=== PATIENT | female | born 1960 | race Caucasian/White ===

== ENCOUNTER 2017-07-07 10:10 | Emergency (ER) | payer OTHER ==
[2017-07-07 10:15] VITALS: BP 122/79; RESP 18; TEMP 98.2
[2017-07-07] MEDS ORDERED: PROMETHAZINE HCL 25 MG TAB PO ONE (10:30)
--- NOTE | 2017-07-07 10:30 | EDPHY ---
H & P Stated Complaint: med clear Time Seen by Provider: 07/07/17 10:16 HPI/ROS: HPI: This is a 57-year-old female who presents with Chief Complaint: Medical clearance request and alcohol detox Location: body Quality: Medical clearance and alcohol detox Duration: Today Signs and Symptoms: no fever, + nausea, no vomiting, no hematemesis, no blood in stool, no abdominal bloating, no diarrhea, no back pain, no urinary symptoms , no indigestion, no chest pain, no shortness of breath, no suicidal ideation, no homicidal ideation, no hallucinations Timing: Acute on chronic Severity: moderate Context: Patient has a history of alcohol dependence and alcohol abuse presents with request for medical clearance and alcohol detox placement. Patient is taking Vivitrol and Risperdal and the RN, Lillie Stephenson, ([phone]) at [facility] is concerned that these medications are masking her true serum alcohol level. She is requesting laboratory workup including LFTs and serum ethanol level. She tried to get [facility] this morning for alcohol detox but patient was declined as she has Medicare. Patient fifth of Vodka daily and has had 1-2 shots today around 10:30 am. Patient reports that she feels mildly nauseous but denies vomiting, diarrhea, fever, abdominal pain. She also has a history of DVT and takes Xarelto and aspirin. Patient denies lower extremity swelling/shortness of breath/chest pain. Patient reports compliance with all medications including a.m. doses today. She is due for Risperdal IM injection tomorrow and her last shot of it trial was 2016. Patient denies any suicidal ideation/homicidal ideation/hallucinations/ auditory disturbances/visual disturbances/tactile disturbances + mild bandlike headache and mild anxiety. She reports that she has been sober for "quite some time" but recently started drinking again over the holiday. Denies history of alcohol withdrawal seizures. Patient's accompanied by legal guardian. Modifying Factors: None Comment: ROS: see HPI Constitutional: No fever, no chills, no weight loss Eyes: No blurred vision Respiratory: No shortness of breath, no cough Cardiovascular: No chest pain, no palpitations Gastrointestinal: + nausea, no vomiting, no diarrhea, no hematemesis, no blood in stool Genitourinary: No dysuria, no blood in urine Extremities: No myalgias, no edema Neurologic: No weakness, no numbness Skin: No rashes, no petechiae Hematologic: No bruising, no bleeding MEDICAL/SURGICAL/SOCIAL HISTORY: Medical history: DVT, bipolar, PAD, ETOH abuse Surgical history: LEG SURG R/T DVT'S, back pain Social history: unemployed. CONSTITUTIONAL: Chronically ill-appearing white female, appears older than stated age, awake and alert, no obvious distress HEENT: Atraumatic and normocephalic, PERRL, EOMI. Tympanic membranes clear. Oropharynx clear, no exudate and moist pink mucosa. Airway patent. No lymphadenopathy. No meningismus. Cardiovascular: Normal S1/S2, mild tachycardia, regular rhythm, without murmur rub or gallop. PULMONARY/CHEST: Symmetrical and nontender. Clear to auscultation bilaterally. Good air movement. No accessory muscle usage. ABDOMEN: Soft, nondistended, nontender, no rebound, no guarding, no peritoneal signs, no masses or organomegaly. No CVAT. EXTREMITIES: 2/2 pulses, strength 5/5, no deformities, no clubbing, no cyanosis or edema. NEUROLOGICAL: Mild hand tremors. GCS 15. Alert and oriented x4. Gait is slow and purposeful. SKIN: Warm and dry, no erythema. no rash. Good capillary refill. PSYCH: Calm and cooperative, conversant, good eye contact, no flight of ideas, organized thought process, relatively good insight and judgment, no auditory and visual command hallucinations, no suicidal ideation with a plan, no homicidal ideation, no paranoia Source: Patient, RN/MD Exam Limitations: No limitations - Personal History Current Tetanus/Diphtheria Vaccine: Unsure Current Tetanus Diphtheria and Acellular Pertussis (TDAP): Unsure Tetanus Vaccine Date: unsure - Medical/Surgical History Hx Asthma: No Hx Chronic Respiratory Disease: No Hx Diabetes: No Hx Cardiac Disease: No Hx Renal Disease: No Hx Cirrhosis: No Hx Alcoholism: Yes Hx HIV/AIDS: No Hx Splenectomy or Spleen Trauma: No Other PMH: medical- DVT, bipolar, PAD, ETOH abuse. surgical- LEG SURG R/T DVT'S , back pain - Social History Smoking Status: Former smoker Constitutional: Initial Vital Signs Temperature (C) 36.8 C 07/07/17 10:13 Heart Rate 102 H 07/07/17 10:13 Respiratory Rate 18 07/07/17 10:13 Blood Pressure 122/79 H 07/07/17 10:13 O2 Sat (%) 94 07/07/17 10:13 O2 Delivery Mode Room Air Allergies/Adverse Reactions: codeine [Codeine] Allergy (Mild, Verified 07/07/17 10:13) NAUSEA oxycodone HCl [From Percocet] Allergy (Mild, Verified 07/07/17 10:13) NAUSEA penicillin V [Penicillin V] Allergy (Mild, Verified 07/07/17 10:13) Unknown Home Medications: Medication Instructions Recorded ASPIRIN 05/18/16 Cilostazol 05/18/16 LEVOTHYROXINE SODIUM 05/18/16 Prozac 40 mg 05/18/16 Xarelto 05/18/16 Zyprexa 05/18/16 carBAMazepine 05/18/16 Medical Decision Making ED Course/Re-evaluation: Labs and UDS ordered. Given p.o. promethazine for nausea. Patient does not meet M1 criteria. Case management consult for alcohol detox options. CIWA score upon arrival: 8 points Comanagement called the [facility] who advised that there is bed availability and patient is eligible to be discharged to their facility. Patient then advised Case management that she did not want to go to the [facility]. Patient given numbers to call [facility] and [facility] for evaluation/admission. 1055: Labs reviewed- serum ETOH 281. AST 52. Mild leukocytosis without left shift; afebrile. Still waiting on urine sample from patient her [facility] RN request. Reassessed patient who is calm and cooperative; patient has an appointment at [facility] at 3:30 p.m. UDS negative. [facility] does not require prepack of Librium. No signs of delirium/psychosis/alcohol withdrawal/seizure/HI/SI. No ataxia noted at discharge. This patient was seen under the supervision of my secondary supervising physician. I evaluated care for this patient independently. Discussed this patient with Dr. Steve who did not see the patient. Patient's presentation, labs /imaging, treatment and plan of care were discussed with secondary supervising physician. Differential Diagnosis: Differential diagnosis includes but is not limited to transaminitis, medication side effect, alcohol intoxication, electrolyte imbalance. - Data Points Laboratory Results: Laboratory Results 07/07/17 10:30 07/07/17 10:30 07/07/1718 07/07/17 13:45 10:30 10:30 WBC 10.87 10^3/uL H 10^3/uL (3.80-9.50) RBC 5.00 10^6/uL 10^6/uL (4.18-5.33) Hgb 15.9 g/dL g/dL (12.6-16.3) Hct 45.6 % % (38.0-47.0) MCV 91.2 fL fL (81.5-99.8) MCH 31.8 pg pg (27.9-34.1) MCHC 34.9 g/dL g/dL (32.4-36.7) RDW 13.3 % % (11.5-15.2) Plt Count 232 10^3/uL 10^3/uL (150-400) MPV 9.2 fL fL (8.7-11.7) Neut % (Auto) 69.8 % % (39.3-74.2) Lymph % (Auto) 25.0 % % (15.0-45.0) [place] % (Auto) 3.9 % L % (4.5-13.0) Eos % (Auto) 0.5 % L % (0.6-7.6) Baso % (Auto) 0.5 % % (0.3-1.7) Nucleat RBC Rel Count 0.0 % % (0.0-0.2) Absolute Neuts (auto) 7.60 10^3/uL H 10^3/uL (1.70-6.50) Absolute Lymphs (auto) 2.72 10^3/uL 10^3/uL (1.00-3.00) Absolute Monos (auto) 0.42 10^3/uL 10^3/uL (0.30-0.80) Absolute Eos (auto) 0.05 10^3/uL 10^3/uL (0.03-0.40) Absolute Basos (auto) 0.05 10^3/uL 10^3/uL (0.02-0.10) Absolute Nucleated RBC 0.00 10^3/uL 10^3/uL (0-0.01) Immature Gran % 0.3 % % (0.0-1.1) Immature Gran # 0.03 10^3/uL 10^3/uL (0.00-0.10) Sodium 141 mEq/L mEq/L (134-144) Potassium 4.1 mEq/L mEq/L (3.5-5.2) Chloride 100 mEq/L mEq/L (97-110) Carbon Dioxide 15 mEq/l L mEq/l (22-31) Anion Gap 26 mEq/L H mEq/L (8-16) BUN 13 mg/dL mg/dL (7-23) Creatinine 0.9 mg/dL mg/dL (0.6-1.0) Estimated GFR > 60 Glucose 54 mg/dL L mg/dL (70-100) Calcium 9.4 mg/dL mg/dL (8.5-10.4) Total Bilirubin 0.9 mg/dL mg/dL (0.1-1.4) Conjugated Bilirubin 0.4 mg/dL mg/dL (0.0-0.5) Unconjugated Bilirubin 0.5 mg/dL mg/dL (0.0-1.1) AST 52 IU/L H IU/L (14-46) ALT 49 IU/L IU/L (9-52) Alkaline Phosphatase 80 IU/L IU/L (38-126) Total Protein 7.5 g/dL g/dL (6.3-8.2) Albumin 5.0 g/dL g/dL (3.5-5.0) Urine Opiates Screen NEGATIVE (NEGATIVE) Urine Barbiturates NEGATIVE (NEGATIVE) Ur Phencyclidine Scrn NEGATIVE (NEGATIVE) Ur Amphetamine Screen NEGATIVE (NEGATIVE) U Benzodiazepines Scrn NEGATIVE (NEGATIVE) Urine Cocaine Screen NEGATIVE (NEGATIVE) U Marijuana (THC) Screen NEGATIVE (NEGATIVE) Ethyl Alcohol 281 mg/dL H mg/dL (0-10) Medications Given: Discontinued Medications Promethazine HCl (Phenergan) 25 mg PO EDNOW ONE Stop: 07/07/17 10:31 Last Admin: 07/07/17 10:36 Dose: 25 mg Departure - Departure Disposition: Other Psych, Not [place] Clinical Impression: Alcohol abuse Alcohol dependence Qualifiers: Substance use status: with intoxication Complication of substance-induced condition: uncomplicated Qualified Code(s): F10.220 - Alcohol dependence with intoxication, uncomplicated Condition: Fair Instructions: Alcohol Use Disorder (ED) Additional Instructions: Patient is medically clear to be admitted to alcohol detox program. Referrals: Maki Jerez MD [Primary Care Provider] - As per Instructions
[2017-07-07 10:41] LABS: PLATELET COUNT 232 10^3/uL (150-400)
--- NOTE | 2017-07-07 11:23 | ASMTCMCOM ---
CM Note CM Note Notes: Met with patient to discuss resources and plans for alcohol detox and treatment. Patient is alert, oriented to self and situation. She is accompanied by a "child care worker/friend" to whom I am not introduced. Patient consults with her as she confirms her options. I was able to clarify with patient that she did present to [facility] prior to arriving to the ER. She admits that she does not want to go to the [facility]. Patient tells me that she has been to IP treatment in the past for her alcoholism. We talked about different options available for detox and she states that she would like to follow through with IP treatment as well. I explained the process of reaching out to detox facilities that she is interested in so she can arrange an assessment for admission. I have also explained that she may or may be able to get in for an assessment today, and that she may need to schedule an intake for a later date. She has a list of potential options such as [facility], [place], and others I have encouraged her to contact potential options while she is here and she acknowledges that she has support and transportation to get her to a chosen location. Date Signed: 07/07/2017 11:22 AM Electronically Signed By:Rola Moon RN
[2017-07-07 14:59] VITALS: PULSE 120; O2SAT 95
== END 2017-07-07 14:58 ==
DX: F10.220 Alcohol dependence with intoxication, uncomplicated (principal); Z79.01 Long term (current) use of anticoagulants; Z79.82 Long term (current) use of aspirin; Z87.891 Personal history of nicotine dependence
CPT/HCPCS: 80305; G0480

== ENCOUNTER 2017-08-22 16:03 | Emergency (ER) | payer OTHER ==
[2017-08-22 16:19] VITALS: BP 105/79; PULSE 87; RESP 17; TEMP 98.1; O2SAT 93
--- NOTE | 2017-08-22 16:50 | EDPHY ---
H & P Stated Complaint: etoh/drinks every day and wants to quit on multiple meds Time Seen by Provider: 08/22/17 16:28 - Personal History Current Tetanus/Diphtheria Vaccine: Unsure Tetanus Vaccine Date: unsure - Medical/Surgical History Hx Asthma: No Hx Chronic Respiratory Disease: No Hx Diabetes: No Hx Cardiac Disease: No Hx Renal Disease: No Hx Cirrhosis: No Hx Alcoholism: Yes Hx HIV/AIDS: No Hx Splenectomy or Spleen Trauma: No Other PMH: medical- DVT, bipolar, PAD, ETOH abuse. surgical- LEG SURG R/T DVT'S , back pain - Social History Smoking Status: Former smoker Constitutional: Initial Vital Signs Temperature (C) 36.7 C 08/22/17 16:16 Heart Rate 87 08/22/17 16:16 Respiratory Rate 17 08/22/17 16:16 Blood Pressure 105/79 08/22/17 16:16 O2 Sat (%) 93 08/22/17 16:16 O2 Delivery Mode Room Air Allergies/Adverse Reactions: codeine [Codeine] Allergy (Mild, Verified 08/22/17 16:15) NAUSEA oxycodone HCl [From Percocet] Allergy (Mild, Verified 08/22/17 16:15) NAUSEA penicillin V [Penicillin V] Allergy (Mild, Verified 08/22/17 16:15) Unknown Home Medications: Medication Instructions Recorded ASPIRIN 05/18/16 Cilostazol 05/18/16 LEVOTHYROXINE SODIUM 05/18/16 Prozac 40 mg 05/18/16 Xarelto 05/18/16 Zyprexa 05/18/16 carBAMazepine 05/18/16 Risperdal 08/22/17 Vivitrol 08/22/17 Medical Decision Making ED Course/Re-evaluation: CHIEF COMPLAINT: Alcohol intoxication HISTORY OF PRESENT ILLNESS: The patient is a 57 y/o female with a history of alcoholism arriving to the ED for a blood alcohol test at the request of [facility]. She is taking Vivitrol and they were concerned that the alcohol would be toxic when mixed with the Vivitrol. No chest pain, shortness of breath, abdominal pain, urinary or bowel complaints, fever. REVIEW OF SYSTEMS: A 10 point review of systems was performed and is negative with the exception of the elements mentioned in the history of present illness. PHYSICAL EXAM: HR, BP, O2 Sat, RR. Temp noted General Appearance: Alert, well hydrated, appropriate, and non-toxic appearing. Head: Atraumatic without scalp tenderness or obvious injury Eyes: Pupils equal, round, reactive to light and accommodation, EOMI, no trauma , no injection. Ears: Clear bilaterally, no perforation, normal landmarks Nose: Atraumatic, no rhinorrhea, clear. Throat: There is no erythema or exudates, no lesions, normal tonsils, mucus membranes moist. Neck: Supple, nontender, no lymphadenopathy. Respiratory: No retractions, no distress, no wheezes, and no accessory muscle use. Lungs are clear to auscultation bilaterally. Cardiovascular: Regular rate and rhythm, no murmurs, rubs, or gallops. Good capillary refill all extremities. Gastrointestinal: Abdomen is soft, nontender, non-distended, no masses, no rebound, no guarding, no peritoneal signs. Musculoskeletal: Normal active ROM of all extremities, atraumatic. Neurological: Alert, appropriate, and interactive. Non-focal neuro. Skin: No rashes, good turgor, no nodules on palpation. Past medical history: DVT, bipolar, PAD, ETOH abuse Past surgical history: Right leg DVT surgery Family history: Denies Social history: Friend at bedside, alcoholic DIFFERENTIAL DIAGNOSIS: The differential diagnosis for the patient's altered mental status included but was not limited to alcohol or illicit substance use. MEDICAL DECISION MAKING: The patient is a 57 y/o female with a history of alcoholism presenting for a blood alcohol level test at the request of [facility]. Her physical exam is normal. Patient will be breathalyzed. Reassessed patient and discussed breathalyzer results. Return precautions provided; patient is comfortable with this plan. Departure - Departure Disposition: Home, Routine, Self-Care Clinical Impression: Polysubstance abuse Alcoholic intoxication Qualifiers: Complication of substance-induced condition: uncomplicated Qualified Code(s): F10.920 - Alcohol use, unspecified with intoxication, uncomplicated Condition: Good Instructions: Alcohol Intoxication (ED), Abuse of Alcohol (ED), Polysubstance Abuse (ED) Additional Instructions: 1. Please refrain from abusing alcohol. 2. Return to the emergency department immediately for fever, vomiting, confusion , headache, abdominal pain or other worsening of condition. 3. Followup with your primary care physician within 72 hours for reevaluation. Referrals: Maki Jerez MD [Primary Care Provider] - As per Instructions Report Scribed for: Robby Silver Report Scribed by: Nidhi Cantu Date of Report: 08/22/17 Time of Report: 16:49
--- NOTE | 2017-08-22 17:38 | ASMTCMCOM ---
CM Note CM Note Notes: Patient presented to the ED with her conservator (who was not introduced) stating that she drank alcohol today and her last shot of Vivitrol was administered this past . 08/19/17 (pt receives Vivitrol via [facility]) so they have been instructed to come to the ED to get her BAL checked "because Vivitrol masks her intoxication presentation and blood alcohol levels and we need to check to see if she is toxic." Patient is sitting in triage room chair, calm cooperative, alert oriented and does not appear intoxicated. The fact that she does not appear intoxicated concerns her conservator and reportedly her [facility] provider. Patient was seen in the ED 07/07/17 for the same reasons and blood work was completed. Upon that visit's discharge, patient was provided info on [facility]; she made her own intake appt and was eventually admitted to . ED MD Robby Silver met with patient and her conservator, along with this CM, and explained that he is not concerned about her BAL and Vivitrol interactions, and is does not understand why [facility] sent her to the ED. Dr Silver feels pt can be discharged to followup at a detox treatment facility (patient has been provided several lists of treatment centers that either take Medicare or that she could self-pay) and to follow up with her provider at [facility]. Patient's legal co-guardian Madiha Patel ([phone], with [employer]) later arrived to the ED after patient had been given discharge paperwork. Madiha then stated she was concerned about patient's depression and requested patient get a mental health eval for possible inpatient psychiatric placement. Patient denies SI/HI at this time. We discussed that it would be best for the patient to seek inpatient detox treatment and/or to follow up with her provider at [facility]. Patient and Madiha are familiar with the [facility] and aware they can always present there to be screened for possible crisis intervention mental health services. Patient, Madiha and pt's conservator all agreeable to plan. CM available for further assistance if needed. Date Signed: 08/22/2017 05:37 PM Electronically Signed By:Hailey Johnson RN
--- NOTE | 2017-08-22 17:42 | ASDISCHSUM ---
Discharge Information Plan Status:Home with No Needs Medically Cleared to Leave: Discharge Date:08/22/2017 05:17 PM CM D/C Disposition:Home, Routine, Self-Care ADT D/C Disposition:Home, Routine, Self-Care Projected Discharge Date:08/22/2017 05:17 PM Transportation at D/C:Friend Discharge Delay Reason: Follow-Up Date:08/22/2017 05:17 PM Discharge Slot: Final Diagnosis: Placement Information Patient Contact Information Contact Name:JUAN C Relationship:Mother Address:[address] Work Phone: City:[facility] Phone: [facility]/Zip Code:[place] [address] Email: Financial Information Financial Class:Medicare Primary Plan Desc:MEDICARE OUTPATIENT Primary Plan Number:[id number] Secondary Plan Desc: Secondary Plan Number: Assessment Information [facility] CM Progress Note CM Note CM Note Notes: Patient presented to the ED with her conservator (who was not introduced) stating that she drank alcohol today and her last shot of Vivitrol was administered this past ur. 08/19/17 (pt receives Vivitrol via [facility]) so they have been instructed to come to the ED to get her BAL checked "because Vivitrol masks her intoxication presentation and blood alcohol levels and we need to check to see if she is toxic." Patient is sitting in triage room chair, calm cooperative, alert oriented and does not appear intoxicated. The fact that she does not appear intoxicated concerns her conservator and reportedly her [facility] provider. Patient was seen in the ED 07/07/17 for the same reasons and blood work was completed. Upon that visit's discharge, patient was provided info on [facility]; she made her own intake appt and was eventually admitted to . ED MD Robby Silver met with patient and her conservator, along with this CM, and explained that he is not concerned about her BAL and Vivitrol interactions, and is does not understand why P sent her to the ED. Dr Silver feels pt can be discharged to followup at a detox treatment facility (patient has been provided several lists of treatment centers that either take Medicare or that she could self-pay) and to follow up with her provider at [facility]. Patient's legal co-guardian Madiha Patel ([phone], with [employer]) later arrived to the ED after patient had been given discharge paperwork. Madiha then stated she was concerned about patient's depression and requested patient get a mental health eval for possible inpatient psychiatric placement. Patient denies SI/HI at this time. We discussed that it would be best for the patient to seek inpatient detox treatment and/or to follow up with her provider at [facility]. Patient and Madiha are familiar with the [facility] and aware they can always present there to be screened for possible crisis intervention mental health services. Patient, Madiha and pt's conservator all agreeable to plan. CM available for further assistance if needed. Date Signed: 08/22/2017 05:37 PM Electronically Signed By:Hailey Johnson RN LACE LACE Acuity / Level of Answers: No Care: Did the patient have an inpatient admission? # of Emergency department Answers: 1-2 visits in the last 6 months Social determinants Answers: History of substance abuse (ETOH, street drugs, prescription drugs, etc.) Mental health diagnosis (anxiety, depression, pers onality disorders, etc.) Score: 7 Date Signed: 08/22/2017 05:41 PM Electronically Signed By:Hailey Johnson RN Intervention Information Intervention Type:Substance Abuse Treatment Date of Service:08/22/2017 05:39 PM Patient Type:Emergency Room Staff Member:JULIAN Johnson [place] Hours:0.5 Discipline:Contact Lens Fitter Severity: Comment:resources and lists provided
== END 2017-08-22 17:17 | disposition home or self-care (01) ==
DX: F10.920 Alcohol use, unspecified with intoxication, uncomplicated (principal); F19.10 Other psychoactive substance abuse, uncomplicated; Z79.01 Long term (current) use of anticoagulants; Z79.82 Long term (current) use of aspirin; Z87.891 Personal history of nicotine dependence